=== PATIENT | female | born 1965 | race African-American/Black ===

== ENCOUNTER 2019-02-24 11:39 | Emergency (ER) | payer MEDICAID ==
[~2019-02-24] VITALS: Ht 154.9 cm; Wt 54.0 kg
[2019-02-24] MEDS ORDERED: IBUPROFEN 400MG TABLET PO ONE (15:00)
[2019-02-24 15:07] VITALS: BP 160/90
== END 2019-02-24 16:36 | disposition home or self-care (01) ==
LOC: ER 11:39
DX: G89.29 Other chronic pain (principal); M25.552 Pain in left hip; Z90.710 Acquired absence of both cervix and uterus
CPT/HCPCS: 73502; 99283